=== PATIENT | female | born 1950 | race Caucasian/White ===

== ENCOUNTER → 2019-01-17 10:24 | Outpatient (CLI) | payer MEDICARE, SELFPAY ==
--- NOTE | 2019-01-17 | CA_ITS ---
APPROVED REPORT Exam: Pharmacologic Technologist: Kenton Ross, Ht: 5 ft 1 in Wt: 160 lbs BSA: 1.72 m2 HR: 64 bpm BP: 158/78 mmHg Indications: Shortness of Air, Fatigue, palpitations Medical History Medical History: SOA,PALPITATIONS,FATIGUE Medications: Levothyroxine,,,,, Metoprolol,,,,, Atorvastatin,,,,, Tramadol,,,,, Fluoxetin,,,,, B-12,,,,, TriLOgy,,,,, Allergies: NKA Cardiac Risk Factors: Hyperlipidemia, FHX of CAD Stress Test Details Test: LEXISCAN HR Resting HR: 67 bpm Max Heart Rate (APMHR): 152 bpm Max HR Achieved: 95 bpm Target HR (85% APMHR): 129 bpm % of APMHR: 62 Recovery HR: 87 bpm BP Resting BP: 158.0/78.0 mmHg Max BP: 162.0/86.0 mmHg Recovery BP: 158.0/85.0 mmHg ECG Resting ECG: SINUS RHYTHM Clinical Exercise duration: 04:00 min Highest Stage Achieved: Exercise capacity: 1.0 METs Stress ECG Conclusion LEXISCAN PORTION COMPLETED. C/O HEADACHE AND BACK ACHE AT PEAK EXERCISE WHICH RESOLVED IN RECOVERY. NO CHEST PAIN OR SOA. + HEADACHE AND BACK ACHE DURING PEAK INFUSION. RESOLVED IN RECOVERY. OCCASIONAL PVC. LESS THAN 1.5MM ST DEPRESSION. IMAGES TO FOLLOW. Electronically signed by : Maldonado Holt, 01/17/2019 13:57:07
--- NOTE | 2019-01-17 10:27 | CA_ITS ---
APPROVED REPORT EXAM: Comprehensive 2D, Doppler, and color-flow Echocardiogram Algebra Tutor: Dot Dean RT(R) Ht: 5 ft 2 in Wt: 165lbs BSA: 1.76 BP: 124/75 mmHg Indications: Shortness of Breath, CAD, Hyperlipidemia, Hypertension/HDD 2D Dimensions IVSd 1.10 cm F: 0.6-1.0 LVEF (Visual) 49.70 % PWd 1.20 cm F: 0.6 - 1.0 LVDd 2.90 cm F: 3.9 - 5.3 LVDs 2.20 cm F: 2.2 - 3.5 LVOT 2.10 cm (M/F) 1.5-2.5 M-Mode Dimensions LA Diam 2.30 cm (1.9-4.0) Ao Diam 2.40 cm (2.0-3.7) AV Cusp 1.60 cm (1.5-2.6) LV Diastology E/A Ratio 0.8 MED E' 7.12 (< 7 cm/sec) E'/MED E' Ratio 10.30 (>14) LAT E' 7.31 (<10 cm/sec) E/LAT E' Ratio 10.10 (>14) Mitral Valve MV E Max Arpit. 73.50 (40-130 cm/s) MV A Velocity 92.80 (40-130 cm/s) E/A Ratio 0.80 Left Ventricle Left atrium is mildly enlarged, left ventricle is normal size, mild concentric left ventricular hypertrophy, visually estimated ejection fraction 55% with no regional wall motion abnormality. Grade 1 diastolic dysfunction seen without tissue Doppler evidence of raise left atrial pressure. Right Ventricle Right atrium and right ventricular normal size and contractility. Aortic Valve Aortic valve is minimally thickened and calcified, leaflet continue to display mobility, there is no aortic stenosis aortic insufficiency. Mitral Valve Mitral valve is grossly normal, there is mild mitral regurgitation. Tricuspid Valve Tricuspid valve is grossly normal, there is mild tricuspid regurgitation. Pulmonic Valve Pulmonic valve is poorly visualized. Great Vessels Aortic root is normal size. Pericardium No significant pericardial effusion noted. Conclusion 1. Mildly enlarged left atrium, normal left ventricular size, mild concentric left ventricular hypertrophy, visually estimated ejection fraction 55% with no regional wall motion abnormality. Grade 1 diastolic dysfunction seen without tissue Doppler evidence of raise left atrial pressure. 2. Mild mitral and tricuspid regurgitation 3. No significant pericardial effusion noted. Electronically signed by : Maldonado Holt, 01/19/2019 07:53:30
--- NOTE | 2019-01-17 11:08 | NM_ITS ---
APPROVED REPORT Exam: Nuclear Stress Test Indication: SOB, DYSPNEA, FATIQUE, Patient Location: Outpatient Stress Tech: Diane Gustabo [place] Tech:Celina MedinaYASMINE RT (R)(N)(M) Ht: 5 ft 0 in Wt: 155 lbs BSA: 1.67 m2 HR: 64 bpm BP: 158/78 mmHg History: SOB, DYSPNEA, FATIQUE, Procedure: Patient received a 0.4 mg of intravenous Lexiscan, resting heart rate 64 bpm, resting blood pressure 158/78 mmHg, with Lexiscan maximum heart rate achived was 91 bpm which is % of the maximum predicted heart rate and blood pressure was 135/78 mmHg. Cardiac Stress and Resting SPECT Images: Cardiac Stress and Resting SPECT images were obtained using technetium 99m Myoview 31.1 mCi stress and 9.77 mCi at rest. Conclusion: 1. The study is technically very poor and not interpretable. A repeat study or reprocessing of the study is recommended free of charge to the patient. 2. No EKG was submitted for the review. 3. Non interpretable study Electronically signed by : Maldonado Holt, 01/17/2019 17:50:39
--- NOTE | 2019-01-17 13:27 | HMH.ITSHM ---
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 []LEVOTHYROXINE ATORVASTATIN TRAMADOL B-12 METOPROLOL FLUOXETINE TRILOGY
[2019-01-17 14:08] LABS: POC Glucose,Bedside 117 (70-110)
== END ==
PROVIDERS: Visit Provider Nurse Practitioner Family
DX: R06.00 Dyspnea, unspecified (principal); R06.01 Orthopnea; I11.9 Hypertensive heart disease without heart failure; I25.10 Atherosclerotic heart disease of native coronary artery without angina pectoris; R68.89 Other general symptoms and signs
CPT/HCPCS: 78452; 82962; 93017; 93306; A9502; J2785